=== PATIENT | male | born 1945 | race Caucasian/White ===

== ENCOUNTER 2017-11-15 17:04 | Emergency (ER) | payer MEDICARE ==
--- OUTSIDE RECORDS SUMMARY | 2017-11-15 17:21 | XMS REPORT ---
:1945 External Reference #:[id number] Author Organization [facility] Address [address] [address] Phone [phone] Care Team Providers Name Role Phone Alexandru Donohue III, MD Primary Care Physician Unavailable Payers Type Date Identification Payment Subscriber Numbers Provider Health Maintenance Expires: Policy Number: Medicare Blue Bro Montero [facility] (O) 07/24/2012 [id number] o Group Number: [id number] [address] [address] PayID: [id number] EDWARDO Rainey [id number] Medigap Part B Effective: 07/24/2006 Policy Number: [facility] DEVAN Montero [id number] Expires: 08/24/2009 PayID: [id number] [address] [address] EDWARDO Rainey [address] Commercial Effective: Policy Number: Bandar Nguyen/Kavita Bro Montero 07/24/2012 [id number] Options PayID: [id number] [address] [address] Attn: [place] [address] Problems Date Description Provider Status Onset: 04/17/2013 Pure hypercholesterolemia Alexandru Donohue M.D. Active Onset: 05/05/2016 Sprain of shoulder and upper arm Paul Rivera MD Active Onset: 06/07/2016 Full thickness rotator cuff tear Paul Rivera MD Active Onset: 11/11/2016 Carpal tunnel syndrome of left wrist Paul Rivera MD Active Onset: 05/09/2017 Neck pain Paul Rivera MD Active Onset: 05/09/2017 Brachial neuritis Paul Rivera MD Active Onset: 06/26/2017 Cervical spondylosis without Maxx Richard M.D. Active myelopathy Family History Date Family Member(s) Problem(s) Comments General Heart Disease Father due to Stroke () Mother due to Natural Causes () Siblings 1 sister, 2 half sisters (mom in common), 1 brother, 1 half brother First Sister due to Stroke () First Sister due to age 70 (half sister) () - (+) DM Social History Type Date Description Comments Lives With Occupation Retired Semi-retired [employer] ETOH Use 04/17/2013 consumes 1-2 beers per day Smoking Patient has never smoked Exercise Type/Frequency Exercises regularly [employer] work; active at work Allergies, Adverse Reactions, Alerts Date Description Reaction Status Severity Comments 04/17/2013 NKDA active Medications Medication Date Status Form Strength Qnty SIG Indications Ordering Provider Lactulose 11/01/ Active Solution 10GM/15ML 600ml 30 ml K59.00 Alexandru Chau 2018 daily Tawanna Donohue Flaxseed Oil / Active Capsules 1000mg 1 po qd Unknown 0000 Miralax / Active Powder 1/2 cap Unknown 0000 every other day Docalax / Active Unknown 0000 Meloxicam 06/26/ Hx Tablets 15mg 30tabs 1 by M47.812 Maxx 2017 - mouth Hilary, 10/25/ every day M.D. 2017 Doxycycline 05/16/ Hx Capsules 100mg 2caps 2 tabs by S30.861A Alexandru Smyth 2016 - mouth for Jayde, 10/25/ one dose M.D. 2017 Zetia 05/16/ Hx Tablets 10mg 90tabs 1 by E78.00 Alexandru Chau 2017 - mouth Jayde, 06/26/ every day M.D. 2016 Ibuprofen 07/19/ Hx Tablets 600mg 90tabs take 1 M25.512 Paul 2015 - tab by MD Nicole 07/16/ mouth 2017 with food 3-4 times a day as needed pain Oxycontin 07/07/ Hx Tab ER 12H 10mg 20tabs 1 tab by Paul 2015 - Abuse-Det mouth MD Nicole 07/16/ twice a 2017 day Keflex 07/06/ Hx Capsules 500mg 21caps take 1 Zaneb 2015 - tab by MD Nicole 07/16/ mouth 3 2017 times a day x 7 days until finished. Percocet 06/29/ Hx Tablets 5-325mg 90tabs 1 -2 tabs Yoditneb 2015 - by mouth MD Nicole 07/16/ every 4-6 2017 hours as needed pain Percocet 06/28/ Hx Tablets 5-325mg 90tabs 1-2 tabs M75.121 Zaadeb 2015 - by mouth MD Nicole 07/16/ every 4-6 2017 hours as needed pain Doxycycline 05/31/ Hx Capsules 100mg twice a R21 Alexandru Chau Hyclate 2015 - day by Jayde, 06/22/ mouth M.D. 2015 Doxycycline 05/30/ Hx Tablets DR 100mg 28tabs 1 tab po R21 Alexandru Chau Hyclate 2015 - twice a Jayde, 05/31/ day M.D. 2015 Duloxetine HCL 06/25/ Hx Caps DR 30mg 60caps take 1 R20.9 Alexandru Chau 2014 - Part capsule Jayde, 01/11/ by mouth M.D. 2015 every morning for 1 week, thern 2 tabs daily after that Simvastatin 06/25/ Hx Tablets 5mg 90tabs 1 by E78.0 Alexandru Chau 2014 - mouth Jayde, 01/11/ every day M.D. 2015 Atorvastatin 04/20/ Hx Tablets 10mg 90tabs take 1 E78.0 Alexandru Chau Calcium 2014 - tablet in Jayde, 06/25/ the M.D. 2014 evening Pravastatin 04/18/ Hx Tablets 20mg 90tabs 1 tablet 272.0 Alexandru Chau Sodium 2013 - by mouth Jayde, 04/20/ once M.D. 2014 daily at bedtime - on hold x 2 weeks 06/04/14 No Active Hx Unknown Medications 2013 - 2013 Asa 10/02/ Hx 81mg 1 PO qd Alexandru Chau 2007 - Jayde, 04/17/ M.D. 2012 Multi-Vitamin 10/02/ Hx Tablets 1 PO qd Alexandru Chau 2007 - Jayde, M.D. 2012 Fish Oil / Hx Capsules 300mg 1 po qd Unknown 0000 - 2013 Amoxicillin / Hx Tablets 500mg 30tabs 1 by Unknown 0000 - mouth 04/20/ three 2015 times a day for 10 days Medications Administered in Office Medication Date Status Form Strength Qnty SIG Indications Ordering Provider Triamcinolone 09/30/ Administered Injection Zaneb (Kenalog) 2016 MD Nicole Immunizations CPT Code Status Date Vaccine Reaction Lot # 51457 Given 05/16/2017 Influenza Virus Vaccine, Pt. tolerated well. No [id number] Quadrivalent, Split, reaction noted. Preservative Free 81292 Given 04/21/2016 Tdap - [id number] Tetanus/Diptheria/Acellular Pertussis 41773 Given 04/21/2016 Influenza Virus Vaccine, [id number] Quadrivalent, Split, Preservative Free 37504 Given 04/20/2015 Influenza Virus Vaccine, [id number] Quadrivalent, Split, Preservative Free 17806 Given 04/20/2015 Pneumococcal Conjugate [id number] Vaccine 13 Valent For Intramuscular Use 11496 Given 04/18/2014 Influenza Virus Vaccine, [id number] Quadrivalent, Split, Preservative Free 19031 Given 04/17/2013 Zoster (Zostavax) [id number] 89853 Given 04/17/2013 Flu Vaccine Split Virus [id number] Preservative Free For Indiv 3Yr Older [id number] Given 04/27/2011 Fluzone Vaccine [id number] 33561 Given 04/27/2011 Pneumonia Vaccine [id number] 70463 Given 06/02/2009 Influenza Virus Vaccine, Pandemic Formulation 12633 Given 06/02/2009 Administration Swine Flu Shot 96502 Given 09/14/2005 Tetanus And Diptheria (Td) For Adult Use Preservative Free Vital Signs Date Vital Result Comment 11/01/2017 Weight 172.00 lb Heart Rate 84 /min BP Systolic Sitting 100 mmHg BP Diastolic Sitting 65 mmHg Body Temperature 98.5 F O2 % BldC Oximetry 97 % 10/25/2017 Weight 179.00 lb Heart Rate 66 /min BP Systolic Sitting 98 mmHg BP Diastolic Sitting 56 mmHg O2 % BldC Oximetry 93 % 06/26/2017 Height 69.5 inches 5'9.50" Weight 172.00 lb Heart Rate 76 /min BP Systolic Sitting 136 mmHg BP Diastolic Sitting 80 mmHg Pain Level 0 BMI (Body Mass Index) 25.0 kg/m2 05/22/2017 Height 69.5 inches 5'9.50" Weight 171.00 lb Heart Rate 72 /min BP Systolic Sitting 118 mmHg BP Diastolic Sitting 78 mmHg Pain Level 5 BMI (Body Mass Index) 24.9 kg/m2 05/16/2017 Height 69.5 inches 5'9.50" Weight 171.00 lb Heart Rate 62 /min BP Systolic Sitting 118 mmHg BP Diastolic Sitting 65 mmHg Body Temperature 97.1 F O2 % BldC Oximetry 98 % BMI (Body Mass Index) 24.9 kg/m2 05/09/2017 Height 71 inches 5'11" Weight 165.00 lb Heart Rate 60 /min BP Systolic 130 mmHg BP Diastolic 78 mmHg Respiratory Rate 15 /min Body Temperature 95.9 F Pain Level 0 BMI (Body Mass Index) 23.0 kg/m2 12/30/2016 Height 71 inches 5'11" Weight 169.00 lb Respiratory Rate 14 /min Body Temperature 96.2 F Pain Level 0 BMI (Body Mass Index) 23.6 kg/m2 11/11/2016 Height 71 inches 5'11" Weight 169.00 lb Heart Rate 78 /min BP Systolic 122 mmHg BP Diastolic 82 mmHg Respiratory Rate 14 /min Body Temperature 96.2 F Pain Level 0 BMI (Body Mass Index) 23.6 kg/m2 09/30/2016 Height 71 inches 5'11" Weight 169.00 lb Heart Rate 76 /min Respiratory Rate 16 /min Pain Level 0 BMI (Body Mass Index) 23.6 kg/m2 08/16/2016 Height 71 inches 5'11" Weight 169.00 lb Respiratory Rate 19 /min Pain Level 0 BMI (Body Mass Index) 23.6 kg/m2 07/19/2016 Height 71 inches 5'11" Weight 169.00 lb Body Temperature 97.5 F BMI (Body Mass Index) 23.6 kg/m2 07/12/2016 Height 71 inches 5'11" Weight 169.00 lb Respiratory Rate 16 /min Body Temperature 97.8 F Pain Level 3 BMI (Body Mass Index) 23.6 kg/m2 06/28/2016 Height 71 inches 5'11" Weight 169.00 lb Heart Rate 60 /min BP Systolic Sitting 102 mmHg BP Diastolic Sitting 66 mmHg Respiratory Rate 14 /min Pain Level 1 BMI (Body Mass Index) 23.6 kg/m2 06/22/2016 Height 70 inches 5'10" Weight 169.00 lb Heart Rate 81 /min BP Systolic Sitting 90 mmHg BP Diastolic Sitting 60 mmHg Body Temperature 97.8 F O2 % BldC Oximetry 94 % BMI (Body Mass Index) 24.2 kg/m2 06/07/2016 Height 70 inches 5'10" Weight 170.00 lb Pain Level 3 BMI (Body Mass Index) 24.4 kg/m2 05/30/2016 Height 70 inches 5'10" Weight 170.12 lb Heart Rate 76 /min BP Systolic 112 mmHg BP Diastolic 60 mmHg Body Temperature 97.4 F O2 % BldC Oximetry 98 % BMI (Body Mass Index) 24.4 kg/m2 05/05/2016 Height 70 inches 5'10" Weight 172.00 lb Heart Rate 64 /min BP Systolic Sitting 108 mmHg BP Diastolic Sitting 60 mmHg Respiratory Rate 16 /min Pain Level 5 BMI (Body Mass Index) 24.7 kg/m2 04/21/2016 Height 70 inches 5'10" Weight 172.00 lb Heart Rate 64 /min BP Systolic Sitting 108 mmHg BP Diastolic Sitting 62 mmHg Body Temperature 97.1 F O2 % BldC Oximetry 97 % BMI (Body Mass Index) 24.7 kg/m2 01/12/2016 Weight 167.00 lb Heart Rate 66 /min BP Systolic Sitting 135 mmHg BP Diastolic Sitting 74 mmHg Body Temperature 97.1 F Pain Level 6 06/25/2015 Weight 172.00 lb Heart Rate 55 /min BP Systolic Sitting 116 mmHg BP Diastolic Sitting 67 mmHg Body Temperature 96.6 F 04/20/2015 Height 70.25 inches 5'10.25" Weight 171.00 lb Heart Rate 78 /min BP Systolic Sitting 124 mmHg BP Diastolic Sitting 80 mmHg Body Temperature 98.0 F O2 % BldC Oximetry 98 % BMI (Body Mass Index) 24.4 kg/m2 04/18/2014 Height 70.25 inches 5'10.25" Weight 161.50 lb Heart Rate 56 /min BP Systolic Sitting 108 mmHg BP Diastolic Sitting 74 mmHg Body Temperature 97.1 F BMI (Body Mass Index) 23.0 kg/m2 08/02/2013 Weight 161.00 lb Heart Rate 76 /min BP Systolic Sitting 104 mmHg BP Diastolic Sitting 78 mmHg Body Temperature 97.2 F O2 % BldC Oximetry 96 % 04/17/2013 Height 70 inches 5'10" Weight 158.75 lb Heart Rate 78 /min BP Systolic Sitting 100 mmHg BP Diastolic Sitting 66 mmHg BMI (Body Mass Index) 22.8 kg/m2 04/27/2011 Height 70.25 inches 5'10.25" Weight 166.50 lb Heart Rate 64 /min BP Systolic Sitting 110 mmHg BP Diastolic Sitting 60 mmHg BMI (Body Mass Index) 23.7 kg/m2 09/22/2008 Height 70.5 inches 5'10.50" Weight 177.00 lb Heart Rate 70 /min BP Systolic Sitting 90 mmHg BP Diastolic Sitting 70 mmHg BMI (Body Mass Index) 25.0 kg/m2 10/03/2007 Height 70.5 inches 5'10.50" Weight 177.00 lb Heart Rate 76 /min BP Systolic Sitting 102 mmHg BP Diastolic Sitting 70 mmHg BMI (Body Mass Index) 25.0 kg/m2 Results Test Date Test Result H/L Range Note Lipid Profile (Trig/Chol/HDL) 05/09/2017 Triglycerides 57 mg/dL 1 Cholesterol 211 mg/dL 2 HDL Cholesterol 62.0 mg/dL 3 LDL Cholesterol 138 mg/dL 4 Laboratory test finding 05/09/2017 Alt 21 U/L 7-52 Ast 24 U/L 13-39 Comp Metabolic Panel 05/09/2017 Sodium 139 mmol/L 133-145 Potassium 4.5 mmol/L 3.5-5.0 Chloride 103 mmol/L 101-111 Co2 Carbon Dioxide 31 mmol/L 22-32 Anion Gap 5 mmol/L 2-11 Glucose 103 mg/dL High 70-100 Blood Urea Nitrogen 19 mg/dL 6-24 Creatinine 1.10 mg/dL 0.67-1.17 BUN/Creatinine Ratio 17.3 8-20 Calcium 9.2 mg/dL 8.6-10.3 Total Protein 6.4 g/dL 6.4-8.9 Albumin 4.3 g/dL 3.2-5.2 Globulin 2.1 g/dL 2-4 Albumin/Globulin Ratio 2.0 1-3 Total Bilirubin 0.80 mg/dL 0.2-1.0 Alkaline Phosphatase 50 U/L 34-104 Egfr Non- 66.0 >60 Egfr 84.9 >60 5 Laboratory test finding 08/02/2016 Lyme Disease Serology Positive Negative 6 Lyme Western Blot 08/02/2016 Lyme Disease IgG Ab WB Negative Negative Lyme Disease IgG Bands Present p41, kDa Lyme Disease IgM Ab WB Negative Negative Lyme Disease IgM Bands Present No bands detecte <SEE NOTE> kDa 7 Lyme Disease Interpretation See Comment 8 Laboratory test finding 06/03/2016 Lyme Disease Serology <pending> CBC Auto Diff 05/30/2016 White Blood Count 9.3 10^3/uL 3.5-10.8 Red Blood Count 4.86 10^6/uL 4.0-5.4 Hemoglobin 14.7 g/dL 14.0-18.0 Hematocrit 44 % 42-52 Mean Corpuscular Volume 90 fL 80-94 Mean Corpuscular Hemoglobin 30 pg 27-31 Mean Corpuscular HGB Conc 34 g/dL 31-36 Red Cell Distribution Width 13 % 10.5-15 Platelet Count 233 10^3/uL 150-450 Mean Platelet Volume 8 um3 7.4-10.4 Abs Neutrophils 6.2 10^3/uL 1.5-7.7 Abs Lymphocytes 2.0 10^3/uL 1.0-4.8 Abs Monocytes 0.8 10^3/uL 0-0.8 Abs Eosinophils 0.1 10^3/uL 0-0.6 Abs Basophils 0.1 10^3/uL 0-0.2 Abs Nucleated RBC 0 10^3/uL Granulocyte % 67.0 % 38-83 Lymphocyte % 21.3 % Low 25-47 Monocyte % 9.1 % High 1-9 Eosinophil % 1.5 % 0-6 Basophil % 1.1 % 0-2 Nucleated Red Blood Cells % 0 Laboratory test finding 05/30/2016 Erythrocyte Sed Rate 11 mm/Hr 0-40 C Reactive Protein 2.59 mg/L < 5.00 9 Lyme Disease Serology Negative Negative 10 Laboratory test finding 06/25/2015 Alt (SGPT) 21 U/L 7-52 Ast (Sgot) 18 U/L 13-39 Lipid Profile (Trig/Chol/HDL) 06/25/2015 Triglycerides 113 mg/dL 11 Cholesterol 226 mg/dL 12 HDL Cholesterol 50.2 mg/dL 13 LDL Cholesterol 153 mg/dL 14 Lipid Profile (Trig/Chol/HDL) 07/31/2014 Triglycerides 77 mg/dL 15, 16 Cholesterol 170 mg/dL 15, 17 HDL Cholesterol 52.4 mg/dL 15, 18 LDL Cholesterol 102 mg/dL 15, 19 Laboratory test finding 07/31/2014 Ast 21 U/L 13-39 15, 20 Alt 22 U/L 7-52 15, 21 Hepatitis C Antibody Nonreactive Nonreactive 15 Lipid Profile (Trig/Chol/HDL) 10/01/2012 Triglycerides 114 mg/dL 40-200 Cholesterol 195 mg/dL Less than 200 HDL Cholesterol 52 mg/dL 40-60 22 Cholesterol/HDL Ratio 3.8 Average 1-4.44 LDL Cholesterol 120.2 mg/dL High Less Than 100 23 Laboratory test finding 10/01/2012 Glucose 83 mg/dL 70-100 CBC Auto Diff 04/11/2011 White Blood Count 6.3 CUMM 4.8-10.8 Red Cell Count 4.61 CUMM 4.6-6.2 Hemoglobin 14.4 g/dL 14.0-18.0 Hematocrit 42 % 42-52 Mean Corpuscular Volume 90 um3 80-94 Mean Corpuscular Hemoglob 31 pg 27-31 Mean Corpuscular HGB Cone 35 g/dL 32-36 Redcell Distribution WDTH 13 % 10.5-15 Platelet Count 208 CUMM 150-450 Mean Platelet Volume 8.1 um3 7.4-10.4 Gran % 54.7 % 38-83 Lymph % 30.6 % 25-47 Mononuclear % 10.7 % High 1-9 Eosinophil % 3.0 % 0-6 Basophil % 1.0 % 0-2 Abs Lymphs 1.9 1.0-4.8 Abs Mononuclear 0.7 0-0.8 Absolute Neutrophil Count 3.4 1.5-7.7 Abs Eosinophils 0.2 0-0.6 Abs Basophils 0.1 0-0.2 Lipid Profile (Trig/Chol/HDL) 04/11/2011 Triglyceride 59 mg/dL 40-200 Cholesterol 167 mg/dL Less Than 200 24 High Density Lipoprotein 50 mg/dL 40-60 25 Cholesterol/HDL Ratio 3.34 AVERAGE 1-4.97 Low Density Lipoprotein 105 mg/dL High Less Than 100 26 Comp Metabolic Panel 04/11/2011 Sodium 139 mmol/L 135-145 Potassium 4.5 mmol/L 3.5-5.0 Chloride 104 mmol/L 101-111 Co2 (Carbon Dioxide) 29.0 mmol/L 22-32 Anion Gap 6.0 mmol/L 2-11 27 Glucose 95 mg/dL 70-100 BUN 14 mg/dL 6-24 Creatinine 0.9 mg/dL 0.50-1.40 One Over Creatinine 1.11 BUN/Creatinine Ratio 15.6 8-20 Calcium 9.0 mg/dL 8.1-9.9 Total Protein 5.7 GM/DL Low 6.2-8.1 Albumin 3.9 GM/DL 3.2-5.2 Globulin 1.8 GM/DL Low 2-4 Albumin/Globulin Ratio 2.2 1-3 Bilirubin Total 0.6 mg/dL 0.4-1.5 28 Alkaline Phosphatase 51 U/L 39-117 Alt (SGPT) 24 U/L 17-63 Ast (Sgot) 24 U/L 12-42 eGFR Non- 84.7 > 60 eGFR 108.9 > 60 29 Laboratory test finding 04/11/2011 PSA Screening 2.33 NG/ML 0-[address] Donohue's Lab Panel 04/11/2011 TSH 1.72 MIU/ML 0.34-5.60 CBC With Electronic Diff 08/07/2008 White Blood Count 7.1 CUMM 4.8-10.8 15 Red Cell Count 5.02 CUMM 4.6-6.2 15 Hemoglobin 15.1 g/dL 14.0-18.0 15 Hematocrit 44 % 42-52 15 Mean Corpuscular Volume 88 um3 80-94 15 Mean Corpuscular Hemoglob 30 pg 27-31 15 Mean Corpuscular HGB Cone 34 g/dL 32-36 15 Redcell Distribution WDTH 12 % 10.5-15 15 Platelet Count 236 CUMM 150-450 15 Mean Platelet Volume 7.3 um3 Low 7.4-10.4 15 Gran % 58.6 % 38-83 15 Lymph % 26.7 % 25-47 15 Mononuclear % 9.7 % High 1-9 15 Eosinophil % 3.6 % 0-6 15 Basophil % 1.4 % 0-2 15 Abs Lymphs 1.9 1.0-4.8 15 Abs Mononuclear 0.7 0-0.8 15 Absolute Neutrophil Count 4.1 1.5-7.7 15 Abs Eosinophils 0.3 0-0.6 15 Abs Basophils 0.1 0-0.2 15 Laboratory test finding 08/07/2008 TSH 2.10 MIU/ML 0.34-5.60 15 PSA Screening 1.42 NG/ML 0-4 15, 31 Lipid Profile (Trig/Chol/HDL) 08/07/2008 Triglyceride 86 mg/dL 40-200 15 Cholesterol 222 mg/dL High Less Than 200 15, 32 High Density Lipoprotein 52 mg/dL 40-60 15, 33 Cholesterol/HDL Ratio 4.27 AVERAGE 1-4.97 15 Low Density Lipoprotein 153 mg/dL High Less Than 100 15, 34 Comp Metabolic Panel 08/07/2008 Sodium 135 mmol/L 135-145 15 Potassium 4.6 mmol/L 3.5-5.0 15 Chloride 99 mmol/L Low 101-111 15 Co2 (Carbon Dioxide) 30.0 mmol/L 22-32 15 Anion Gap 6.0 mmol/L 2-11 15, 35 Glucose 92 mg/dL 70-100 15, 36 BUN 15 mg/dL 6-24 15 Creatinine 1.00 mg/dL 0.50-1.40 15 One Over Creatinine 1.00 15 BUN/Creatinine Ratio 15.0 8-20 15 Calcium 9.3 mg/dL 8.1-9.9 15, 37 Total Protein 6.2 GM/DL 6.2-8.1 15 Albumin 3.9 GM/DL 3.2-5.2 15 Globulin 2.3 GM/DL 2-4 15 Albumin/Globulin Ratio 1.7 1-3 15 Bilirubin Total 0.9 mg/dL 0.4-1.5 15 Alkaline Phosphatase 51 U/L 39-117 15 Alt (SGPT) 25 U/L 17-63 15 Ast (Sgot) 21 U/L 12-42 15 1 Desirable: <150 Borderline High: 150-199 High: 200-499 Very High: >500 2 Desirable: <200 Borderline High: 200-239 High: >239 3 Low: <40 Desirable: 40-60 High: >60 4 Desirable: <100 Near Optimal: 100-129 Borderline High: 130-159 High: 160-189 Very High: >189 5 Because ethnic data is not always readily available, this report includes an eGFR for both -Americans and non- Americans. The National Kidney Disease Education Program (NKDEP) does not endorse the use of the MDRD equation for patients that are not between the ages of 18 and 70, are , have extremes of body size, muscle mass, or nutritional status, or are non- or non-. According to the National Kidney Foundation, irrespective of diagnosis, the stage of the disease is based on the level of kidney function: Stage Description GFR(mL/min/1.73 m(2)) 1 Kidney damage with normal or decreased GFR 90 2 Kidney damage with mild decrease in GFR 60-89 3 Moderate decrease in GFR 30-59 4 Severe decrease in GFR 15-29 5 Kidney failure <15 (or dialysis) 6 Not diagnostic. Supplemental testing ordered by reflex. Test Performed by: [place] [address] Maintenance Analyst: Micheal Grider II, M.D., Ph.D. 7 No bands detected 8 Specific serologic response to B. burgdorferi infection is not detected, but cannot rule out early infection during which low or undetectable antibody levels to B. burgdorferi may be present. If clinically indicated, a new serum specimen should be submitted in 7-14 days. ADDITIONAL INFORMATION CDC criteria require >=5 bands for IgG or >=2 bands for IgM for the Immunoblot to be considered positive. Bands (e.g.,p41) may be detected in patients without Lyme disease, and patterns not meeting the CDC criteria should be interpreted with caution. Immunoblot should be ordered only on specimens that are positive or equivocal by a FDA-licensed Lyme disease antibody screening test (e.g., EIA). Test Performed by: [place] [address] Maintenance Analyst: Micheal Grider II, M.D., Ph.D. 9 Acute inflammation: >10.00 10 Serologic response to B. burgdorferi infection is not detected, but cannot rule out early infection during which low or undetectable antibody levels to B. burgdorferi may be present. If clinically indicated, a new serum specimen should be submitted in 7-14 days. Test Performed by: [place] [address] Maintenance Analyst: Micheal Grider II, M.D., Ph.D. 11 Desirable <150 Borderline high 150-199 High 200-499 Very High >500 12 Desirable <200 Borderline high 200-239 High >239 13 Low <40 Desirable: 40-60 High: >60 14 Desirable: <100 mg/dL Near Optimal: 100-129 mg/dL Borderline High: 130-159 mg/dL High: 160-189 mg/dL Very High: >189 mg/dL 15 FASTING 16 Desirable <150 Borderline high 150-199 High 200-499 Very High >500 17 Desirable <200 Borderline high 200-239 High >239 18 Low <40 Desirable: 40-60 High: >60 19 Desirable <100 Near Optimal 100-129 Borderline high 130-159 High 160-189 Very High >189 20 FASTING 21 FASTING 22 HDL Interpretation: Undesirable: High Risk: Less than 40 MG/DL Desirable: Low Risk: Greater than 60 MG/DL 23 LDL Interpretation: Low Risk Optimal Level: LDL Less than 100 MG/DL Near or Above Optimal: LDL 100-129 MG/DL Borderline High Risk: LDL 130-159 MG/DL High Risk: LDL 160-189 MG/DL Very High Risk: LDL Greater than 189 MG/DL 24 CHOLESTEROL INTERPRETATION: Desirable: Less than 200 MG/DL Borderline-High Risk: 200-239 MG/DL High-Risk: 240 MG/DL and over 25 HDL INTERPRETATION: Undesirable: High Risk: Less than 40 MG/DL Desirable: Low Risk: Greater than 60 MG/DL 26 LDL INTERPRETATION: Low Risk Optimal Level: LDL Less than 100 MG/DL Near or Above Optimal: LDL 100-129 MG/DL Borderline High Risk: LDL 130-159 MG/DL High Risk: LDL 160-189 MG/DL Very High Risk: LDL Greater than 189 MG/DL 27 Anion gap measurement may be of limited value in the presence of any alkalosis, especially in a combined acid base disorder. . 28 A metabolite of Naproxen, O-desmethylnaproxen, has been shown to interfere with the Jendrassik-Kyle method for measuring total bilirubin. Samples from patients who have taken Naproxen have shown spurious elevation in total bilirubin levels. 29 Because ethnic data is not always readily available, this report includes an eGFR for both -Americans and non- Americans. The National Kidney Disease Education Program (NKDEP) does not endorse the use of the MDRD equation for patients that are not between the ages of 18 and 70, are , have extremes of body size, muscle mass, or nutritional status, or are non- or non-. According to the National Kidney Foundation, irrespective of diagnosis, the stage of the disease is based on the level of kidney function: Stage Description GFR(mL/min/1.73 m(2)) 1 Kidney damage with normal or decreased GFR 90 2 Kidney damage with mild decrease in GFR 60-89 3 Moderate decrease in GFR 30-59 4 Severe decrease in GFR 15-29 5 Kidney failure <15 (or dialysis) 30 * SERUM LEVELS OF PSA MEASURED USING THE [employer] ACCESS HYBRITECH IMMUNOASSAY SHOULD NOT BE INTERPRETED ABSOLUTE EVIDENCE OF THE PRESENCE OR ABSENCE OF DISEASE. THE PSA VALUE SHOULD BE USED IN CONJUNCTION WITH OTHER PERTINENT CLINICAL DIAGNOSTIC PROCEDURES. 31 * SERUM LEVELS OF PSA MEASURED USING THE [employer] ACCESS HYBRITECH IMMUNOASSAY SHOULD NOT BE INTERPRETED ABSOLUTE EVIDENCE OF THE PRESENCE OR ABSENCE OF DISEASE. THE PSA VALUE SHOULD BE USED IN CONJUNCTION WITH OTHER PERTINENT CLINICAL DIAGNOSTIC PROCEDURES. 32 CHOLESTEROL INTERPRETATION: Desirable: Less than 200 MG/DL Borderline-High Risk: 200-239 MG/DL High-Risk: 240 MG/DL and over 33 HDL INTERPRETATION: Undesirable: High Risk: Less than 40 MG/DL Desirable: Low Risk: Greater than 60 MG/DL 34 LDL INTERPRETATION: Low Risk Optimal Level: LDL Less than 100 MG/DL Near or Above Optimal: LDL 100-129 MG/DL Borderline High Risk: LDL 130-159 MG/DL High Risk: LDL 160-189 MG/DL Very High Risk: LDL Greater than 189 MG/DL 35 Anion gap measurement may be of limited value in the presence of any alkalosis, especially in a combined acid base disorder. . 36 Note change in reference range as of 03/13/08. The change was based on recommendations from the [place] [employer]. 37 Please note change in reference range effective 07 . Procedures Date CPT Code Description Status 09/30/2016 06651 Inject/Drain Joint/Bursa Major Completed 07/06/2016 95903 Tenodesis Biceps Long Tendon Completed 07/06/2016 51510 Tenodesis Biceps Long Tendon Completed 07/06/2016 29453 Repair Ruptured Musculotendinous Cuff Open, Chronic Completed 07/06/2016 79507 Repair Ruptured Musculotendinous Cuff Open, Chronic Completed 06/22/2016 36207 EKG Tracing & Interpretation Completed 04/02/2014 74059 EKG, Interpretation Only Completed 11/12/2013 53562 Polysomnography Sleep Staging 4+ Parameters Completed 08/21/2012 Colonoscopy Completed Encounters Type Date Location Provider CPT E/M Dx Office Visit 06/26/2017 [facility]x Richard, [address]442 M47.812 10:10a Of [facility] Office Visit 05/22/2017 [facility] Joi Watt PA-C 17332 M54.2 10:15a Of [facility] M54.2 Office Visit 05/16/2017 9:20a [facility] Alexandru Donohue, 88952 Z00.00 - Lawson Stacy E78.00 R73.01 Z85.828 S30.861A Z23 Office Visit 05/09/2017 8:00a [facility] [place] [address] M75.122 C.M.A. G56.02 M54.2 M47.892 Office Visit 12/30/2016 8:30a [facility] [place] [address] M75.122 C.M.A. G56.02 Z47.89 Office Visit 11/11/2016 9:15a [facility] [place] [address] M75.122 C.M.A. G56.02 Z47.89 Office Visit 06/22/2016 2:20p [facility] Alexandru Donohue, 67303 Z01.810 - Lawson Stacy M75.121 E78.00 Z85.828 Office Visit 06/07/2016 8:00a [place] [address] M75.121 Of C.M.A. Office Visit 05/30/2016 2:00p [facility] Alexandru Donohue, 35418 R21 - Lawson Stacy Office Visit 05/05/2016 8:30[place] [address] S46.011A Of C.M.A. Office Visit 01/12/2016 10:40a [facility] Alexandru Donohue, 98609 M25.512 - Armida Stacy M19.012 Office Visit 06/25/2015 1:00p [facility] Alexandru Donohue, 93839 R20.9 - Armida Stacy E78.0 Office Visit 04/18/2014 10:00a [facility] Alexandru Donohue, 89550 V70.0 - Armida Stacy 272.0 V10.83 782.0 V73.89 V04.81 Office Visit 08/02/2013 11:40a [facility] Alexandru Donohue, 50348 787.20 - Armida Stacy Office Visit 04/17/2013 3:00p [facility] Alexandru Donohue, 75870 V70.0 - Armida Stacy 272.0 V10.83 750.26 V04.81 v04.89 Office Visit 10/03/2011 2:00p [facility] Roly Chen, 77115 915.7 C.M.ACristina Stacy Office Visit 04/27/2011 10:00a DO Not Use [facility] Alexandru Donohue, 78504 V70.0 [facility] Tawanna v04.81 V03.82 V06.6 Office Visit 09/22/2008 3:15p [facility] Alexandru Donoheu, 75946 692.9 [facility] Tawanna 272.0 Office Visit 10/03/2007 1:30p [facility] AlexandruBaugh, 77170 789.00 [facility] Tawanna Plan of Care Future Appointment(s):05/16/2018 9:20 am - Alexandru Donohue M.D. at [facility] - Sksobnbux25/11/2018 - Alexandru Donohue M.D.K59.00 Constipation, unspecifiedNew Medication:Lactulose 10 GM/15ML
--- OUTSIDE RECORDS SUMMARY | 2017-11-15 17:21 | XMS REPORT ---
:1945 External Reference #:[id number] Author [facility] Address [address] [address] Phone [phone] Care Team Providers Name Role Phone Alexandru Donohue III, MD Primary Care Physician Unavailable Payers Type Date Identification Payment Subscriber Numbers Provider Health Maintenance Expires: Policy Number: Medicare Blue Bro Montero [facility] (O) 07/24/2012 [id number] o Group Number: [id number] [address] [address] PayID: [id number] EDWARDO Rainey [address] Medigap Part B Effective: 07/24/2006 Policy Number: [facility] DEVAN Montero [id number] Expires: 08/24/2009 PayID: [id number] [address] [address] EDWARDO Rainey [address]856 Commercial Effective: Policy Number: Bandar Nguyen/Kavita Bro Montero 07/24/2012 [id number] Options PayID: [id number] [address] [address] Attn: [place] [address] Problems Date Description Provider Status Onset: 04/17/2013 [...] Description Comments Lives With Occupation Retired Semi-retired [employer] ETOH Use 04/17/2013 consumes 1-2 beers per day Smoking Patient has never smoked Exercise Type/Frequency Exercises regularly Boat repair work; active at work Allergies, Adverse Reactions, Alerts Date Description Reaction Status Severity Comments 04/17/2013 NKDA active Medications Medication Date Status Form Strength Qnty SIG Indications Ordering Provider Flaxseed Oil Active Capsules 1000mg 1 po qd Unknown 000 Miralax Active Powder /2 cap Unknown 000 every other day Docalax Active Unknown 000 Meloxicam Hx Tablets 15mg 30tabs 1 by M47.812 Maxx 017 - mouth Hilary, every day M.D. 018 Doxycycline Hx Capsules 100mg 2caps 2 tabs by S30.861A Alexandru Rodneyclate 017 - mouth for Jayde, one dose M.D. 018 Zetia Hx Tablets 10mg 90tabs 1 by E78.00 Alexandru Chau 017 - mouth Jayde, every day M.D. 017 Ibuprofen Hx Tablets 600mg 90tabs take 1 M25.512 Paul 016 - tab by MD Nicole mouth 017 with food 3-4 times a day as needed pain Oxycontin Hx Tab ER 12H 10mg 20tabs 1 tab by Paul Cyr - Abuse-Det mouth MD Nicole twice a 017 day Keflex Hx Capsules 500mg 21caps take 1 Paul 016 - tab by MD Nicole mouth 3 017 times a day x 7 days until finished. Percocet Hx Tablets 5-325mg 90tabs 1 -2 tabs Ambrociob 016 - by mouth MD Nicole every 4-6 017 hours as needed pain Percocet Hx Tablets 5-325mg 90tabs 1-2 tabs M75.121 Yoditneb 016 - by mouth MD Nicole every 4-6 017 hours as needed pain Doxycycline Hx Capsules 100mg twice a R21 Alexandru E. Hyclate 016 - day by Jayde, mouth M.D. [address] 100mg 28tabs 1 tab po R21 Alexandru E. Hyclate 016 - twice a Jayde, day M.D. 0[address]ox[address] Hx Caps [address] 30mg 60caps take 1 R20.9 Alexandru E. 015 - Part capsule Jayde, by mouth M.D. 016 every morning for 1 week, thern 2 tabs daily after that Simvastatin Hx Tablets 5mg 90tabs 1 by E78.0 Alexandru E. 015 - mouth Jayde, every day M.D. 016 Atorvastatin Hx Tablets 10mg 90tabs take 1 E78.0 Alexandru E. Calcium 015 - tablet in Jayde, the M.D. 015 evening Pravastatin Hx Tablets 20mg 90tabs 1 tablet 272.0 Alexandru E. Sodium 014 - by mouth Jayde, once M.D. 015 daily at bedtime - on hold x 2 weeks 06/04/14 No Active Hx Unknown Medications 014 - 014 Asa Hx 81mg 1 PO qd Alexandru ECristina 008 - Jayde, M.D. 013 Multi-Vitamin Hx Tablets 1 PO qd Alexandru ECristina 008 - Jayde, M.D. 013 Fish Oil Hx Capsules 300mg 1 po qd Unknown 000 - 014 Amoxicillin 0 Hx Tablets 500mg 30tabs 1 by Unknown 000 - mouth three 015 times a day for 10 days Medications Administered in Office Medication Date Status Form Strength Qnty SIG Indications Ordering Provider Triamcinolone 09/30/ Administered Injection Zaneb (Kenalog) 2016 MD Nicole Immunizations CPT Code Status Date Vaccine Reaction Lot # [id number] Given 05/16/2017 Influenza Virus Vaccine, Pt. tolerated well. No [id number] Quadrivalent, Split, reaction noted. Preservative Free 68524 Given 04/21/2016 Tdap - [id number] Tetanus/Diptheria/Acellular Pertussis 70596 Given 04/21/2016 Influenza Virus Vaccine, [id number] Quadrivalent, Split, Preservative Free 06724 Given 04/20/2015 Influenza Virus Vaccine, [id number] Quadrivalent, Split, Preservative Free 42118 Given 04/20/2015 Pneumococcal Conjugate [id number] Vaccine 13 Valent For Intramuscular Use 07626 Given 04/18/2014 Influenza Virus Vaccine, [id number] Quadrivalent, Split, Preservative Free 96261 Given 04/17/2013 Zoster (Zostavax) [id number] 48740 Given 04/17/2013 Flu Vaccine Split Virus [id number] Preservative Free For Indiv 3Yr Older Q2038 Given 04/27/2011 Fluzone Vaccine [id number] 10535 Given 04/27/2011 Pneumonia Vaccine [id number] 88904 Given 06/02/2009 Influenza Virus Vaccine, Pandemic Formulation 55638 Given 06/02/2009 Administration Swine Flu Shot 94647 Given 09/14/2005 Tetanus And Diptheria (Td) For Adult Use Preservative Free Vital Signs Date Vital Result Comment 10/25/2017 Weight 179.00 lb Heart Rate 66 [...] testing ordered by reflex. Test Performed by: [place] [address] Leverman: Micheal Grider II, M.D., Ph.D. 7 No [...] screening test (e.g., EIA). Test Performed by: [place] [address] Leverman: Micheal Grider II, M.D., Ph.D. 9 Acute inflammation: >10.00 10 Serologic response to B. burgdorferi infection is not detected, but cannot rule out early infection during which low or undetectable antibody levels to B. burgdorferi may be present. If clinically indicated, a new serum specimen should be submitted in 7-14 days. Test Performed by: [address] [address] Leverman: Micheal Grider II, M.D., Ph.D. 11 Desirable [...] SERUM LEVELS OF PSA MEASURED USING THE LAURYN [employer] ACCESS HYBRITECH IMMUNOASSAY SHOULD NOT BE INTERPRETED ABSOLUTE EVIDENCE OF THE PRESENCE OR ABSENCE OF DISEASE. THE PSA VALUE SHOULD BE USED IN CONJUNCTION WITH OTHER PERTINENT CLINICAL DIAGNOSTIC PROCEDURES. 31 * SERUM LEVELS OF PSA MEASURED USING THE LAURYN [employer] ACCESS HYBRITECH IMMUNOASSAY SHOULD NOT BE INTERPRETED [...] change was based on recommendations from the [place] [employer]. 37 Please note change in reference range effective 07 . Procedures Date CPT Code Description Status 09/30/2016 59586 Inject/Drain Joint/Bursa Major Completed 07/06/2016 10717 Tenodesis Biceps Long Tendon Completed 07/06/2016 Tenodesis Biceps Long Tendon Completed 07/06/2016 89990 Repair Ruptured Musculotendinous Cuff Open, Chronic Completed 07/06/2016 83558 Repair Ruptured Musculotendinous Cuff Open, Chronic Completed 06/22/2016 63097 EKG Tracing & Interpretation Completed 04/02/2014 53654 EKG, Interpretation Only Completed 11/12/2013 44376 Polysomnography Sleep Staging 4+ Parameters Completed 08/21/2012 Colonoscopy Completed Encounters Type Date Location Provider [facility] E/M Dx Office Visit 06/26/2017 [facility] Maxx Carloscalf, 45340 M47.812 10:10a Of Anali Solomon.Lc Office Visit 05/22/2017 [facility] Joi Watt PA-C 80688 M54.2 10:15a Of [facility] M54.2 Office Visit 05/16/2017 9:20a [facility] Alexandru Donohue, 22439 Z00.00 - Lawson Stacy E78.00 R73.01 Z85.828 S30.861A Z23 Office Visit 05/09/2017 8:00a [facility] [place] [address] M75.122 C.M.A. G56.02 M54.2 M47.892 Office Visit 12/30/2016 8:30a [facility] [place] [address] M75.122 C.M.A. G56.02 Z47.89 Office Visit 11/11/2016 9:15a [facility] [place] [address] M75.122 C.M.A. G56.02 Z47.89 Office Visit 06/22/2016 2:20p [facility] Alexandru Donohue 41110 Z01.810 - Lawson Stacy M75.121 E78.00 Z85.828 Office Visit 06/07/2016 8:00[place] [facility] [address] M75.121 Of C.M.A. Office Visit 05/30/2016 2:00p [facility] Alexandru Donohue 22823 R21 - Lawson Stacy Office Visit 05/05/2016 8:30[place] [address] S46.011A Of C.M.A. Office Visit 01/12/2016 10:40a [facility] Alexandru Donohue 06388 M25.512 - Armida Stacy M19.012 Office Visit 06/25/2015 1:00p [facility] Alexandru Donohue 90646 R20.9 - Armida Stacy E78.0 Office Visit 04/18/2014 10:00a [facility] Alexandru Donohue, 73214 V70.0 - Armida Stacy 272.0 V10.83 782.0 V73.89 V04.81 Office Visit 08/02/2013 11:40a [facility] Alexandru Donohue, 37428 787.20 - Armida Stacy Office Visit 04/17/2013 3:00p [facility] Alexandru Donohue, 85295 V70.0 - Armida Stacy 272.0 V10.83 750.26 V04.81 v04.89 Office Visit 10/03/2011 2:00p [facility] Roly Chen, 40634 915.7 Anita Stacy Office Visit 04/27/2011 10:00a DO Not Use [facility] Alexandru Donohue, 35926 V70.0 Fabiola Stacy v04.81 V03.82 V06.6 Office Visit 09/22/2008 3:15p [facility] Alexandru Donohue, 98779 692.9 [facility] Tawanna 272.0 Office Visit 10/03/2007 1:30p [facility] Alexandru Donohue, 81071 789.00 [facility] Tawanna Plan of Care Future Appointment(s):05/16/2018 9:20 am - Alexandru Donohue M.D. at [facility] - Qpzndinnw64/04/2018 - Alexandru Donohue M.D.K59.00 Constipation, unspecified
[2017-11-15] MEDS ORDERED: Magnesium CITRATE* 300 ML BTL PO ONE (18:58)
[2017-11-15] MEDS ORDERED: Polyethylene Glycol 3350* 17 GM PACKET PO SCH (20:00)
--- NOTE | 2017-11-15 20:02 | RAD ---
Indication: Possibly of stool. Flat and upright views of the abdomen demonstrates stool in the right colon. The rectal vault is empty. Psoas margins are unremarkable. No dilated loops of bowel are noted. Degenerative changes of the right hip are noted. Degenerative changes of the lumbar spine noted. IMPRESSION: Stool in the right colon. No evidence of obstruction is noted.
[2017-11-15 21:55] VITALS: BP 131/75
--- NOTE | 2017-11-16 13:35 | ED ---
Regan Velazquez Nilda, scribed for Nicolas Bowie MD on 11/15/17 at 1905 . Abdominal Pain/Male - HPI Summary HPI Summary: This patient is a 72 year old M presenting to [facility] accompanied by with a chief complaint of constant constipation for the past 6-7 weeks. Pt states he only has very small watery bowel moments with assistance of Dulcolax. He notes he could only have GI appointment scheduled for the end of the month. Pt reprots abd discomfort (3/10 in severity) that has been causing pt insomnia, loss of appetite, and weight loss secondary to loss of appetite. Pt also reports increased flatulence but denies nausea, fever, diaphoresis, and chills. Pt states constipation is untouched by enema and Lactulax (prescribed by PCP). He states he drinks about 100 oz water per day and 1 beer per day. Medications include flax seed for the past 7-8 years. He is on no other medications. - History of Current Complaint Chief Complaint: EDAbdPain Stated Complaint: ABD PAIN Time Seen by Provider: 11/15/17 18:51 Hx Obtained From: Patient Onset/Duration: Sudden Onset, Lasting Weeks, Still Present Timing: Constant Severity Currently: Mild Pain Intensity: 3 Pain Scale Used: 0-10 Numeric Location: Diffuse Aggravating Factor(s): Food Alleviating Factor(s): Other: - Dulcolax Associated Signs And Symptoms: Positive: Other - constipation, insomnia, loss of appetite, and weight loss secondary to loss of appetite. Pt also reports increased flatulence but denies nausea, fever, diaphoresis, and chills. - Allergies/Home Medications Allergies/Adverse Reactions: Allergies Allergy/AdvReac Type Severity Reaction Status Date / Time No Known Allergies Allergy Verified 11/15/17 17:11 PMH/Surg Hx/FS Hx/Imm Hx Endocrine/Hematology History: Denies: Hx Diabetes Cardiovascular History: Reports: Hx Hypercholesterolemia Denies: Hx Hypertension, Hx Pacemaker/ICD Respiratory History: Reports: Hx Sleep Apnea - evaluation for 10/2013 History: Denies: Hx Renal Disease Musculoskeletal History: Reports: Hx Arthritis - HANDS Sensory History: Reports: Hx Contacts or Glasses - reading glasses, Hx Hearing Aid - right ear, Hx Hearing Problem - tinnitus Opthamlomology History: Reports: Hx Contacts or Glasses - reading glasses Neurological History: Reports: Other Neuro Impairments/Disorders Denies: Hx Headaches Psychiatric History: Denies: Hx Panic Disorder - Surgical History Surgery Procedure, Year, and Place: 04/09/14 RIGHT EAR TYMPANOPLASTY WITH OSSICULOPLASTY WITH TEMPORALIS FASCIA GRAFT([employer] XOMED SAFE UPTO 3T). RIGHT EAR TYMPANOPLASTY [place] [facility] TONSILLECTOMY A CHILD. 06/2016 - Lt SHOULDER Hx Anesthesia Reactions: No Infectious Disease History: No Infectious Disease History: Denies: Traveled Outside the [place] in Last 30 Days - Family History Known Family History: Negative: Cardiac Disease, Hypertension, Diabetes - Social History Lives: With Family Alcohol Use: Weekly Alcohol Amount: 6 bottles weekly Substance Use Type: Reports: None Smoking Status (MU): Never Smoked Tobacco Have You Smoked in the Last Year: No Review of Systems Negative: Fever, Chills, Skin Diaphoresis Negative: Erythema Negative: Sore Throat Negative: Chest Pain Negative: Shortness Of Breath, Cough Positive: Abdominal Pain, Diarrhea - mild with dulcolax, Other - constipation, loss of appetite, weight loss secondary to loss of appetite, increased flatulence. Negative: Vomiting, Nausea Negative: dysuria, hematuria Negative: Myalgia, Edema Negative: Rash Neurological: Other - insomnia secondary to abd pain; negative dizziness All Other Systems Reviewed And Are Negative: Yes Physical Exam - Summary Physical Exam Summary: Constitutional: Well-developed, Well-nourished, Alert. (-) Distressed Skin: Warm, Dry HENT: Normocephalic; Atraumatic Eyes: Conjunctiva normal Neck: Musculoskeletal ROM normal neck. (-) JVD, (-) Stridor, (-) Tracheal deviation Cardio: Rhythm regular, rate normal, Heart sounds normal; Intact distal pulses; The pedal pulses are 2+ and symmetric. Radial pulses are 2+ and symmetric. (-) Murmur Pulmonary/Chest wall: Effort normal. (-) Respiratory distress, (-) Wheezes, (-) Rales Abd: Soft, (-) Tenderness, (-) Distension, (-) Guarding, (-) Rebound. Active bowel sounds. Musculoskeletal: (-) Edema Lymph: (-) Cervical adenopathy Neuro: Alert, Oriented x3 Psych: Mood and affect Normal Triage Information Reviewed: Yes Vital Signs On Initial Exam: Initial Vitals Temp Pulse Resp BP Pulse Ox 97.7 F 71 16 133/74 96 11/15/17 17:06 11/15/17 17:06 11/15/17 17:06 11/15/17 17:06 11/15/17 17:06 Vital Signs Reviewed: Yes Diagnostics - Vital Signs Vital Signs Temp Pulse Resp BP Pulse Ox 11/15/17 18:53 66 143/80 97 11/15/17 18:52 71 97 11/15/17 17:06 97.7 F 71 16 133/74 96 - Laboratory Lab Statement: Any lab studies that have been ordered have been reviewed, and results considered in the medical decision making process. - Radiology Abd XR Radiology Interpretation Completed By: Radiologist - Stool in the right colon. No evidence of obstruction is noted. Dr. Bowie has reviewed this radiology report. Abdominal Pain Fem Course/Dx - Course Assessment/Plan: constipation no obstruction. - Diagnoses Provider Diagnoses: Constipation Discharge - Sign-Out/Discharge Documenting (check all that apply): Discharge/Admit/Transfer - Discharge Plan Condition: Stable Disposition: HOME Prescriptions: Polyethylene Glycol 3350* [Miralax*] 17 gm PO DAILY #10 packet Patient Education Materials: Constipation (ED) Referrals: Alexandru Donohue MD [Primary Care Provider] - 3 Days Additional Instructions: Increase water intake and drink prune juice. RETURN TO THE EMERGENCY DEPARTMENT FOR CHANGING OR WORSENING SYMPTOMS. The documentation as recorded by the Regan balderas Nilda accurately reflects the service I personally performed and the decisions made by Jamir peterson Jerry, MD.
== END 2017-11-15 21:58 | disposition home or self-care (01) ==
LOC: ED 17:04
DX: K59.00 Constipation, unspecified (principal)
CPT/HCPCS: 74018; 99283; A9270-GY

== ENCOUNTER 2018-06-13 09:51 | Day surgery (SDC) | payer MEDICARE ==
--- NOTE | 2018-05-28 09:59 | HP ---
AMENDED REPORT NOW INCLUDES COSIGNER DESIGNATION PREOPERATIVE HISTORY AND PHYSICAL: DATE OF ADMISSION/SURGERY: 06/13/18 DATE OF OFFICE VISIT: 05/25/18 ATTENDING SURGEON: Dr. aPul Rivera.* (DICTATED BY JULISSA BULLARD) PROCEDURE: Right shoulder arthroscopic rotator cuff repair, decompression, debridement, and subpectoral biceps tenodesis. CHIEF COMPLAINT: Right shoulder. HISTORY OF PRESENT ILLNESS: Bro is a 72-year-old male who presents to the clinic for right shoulder pain due to rotator cuff tear and biceps tendinitis. He has failed conservative measures and therefore agreed to undergo a right shoulder arthroscopic rotator cuff repair, decompression, debridement, and subpectoral biceps tenodesis with Dr. Rivera on 06/13/18. PAST MEDICAL HISTORY: Osteoarthritis. PAST SURGICAL HISTORY: Right ear surgery and left shoulder rotator cuff repair. The patient denies prior complications with anesthesia. MEDICATIONS: Flaxseed oil 1000 mg 1 by mouth daily. ALLERGIES: No known drug allergies. FAMILY HISTORY: Denies pertinent family history. SOCIAL HISTORY: He lives with his spouse. He works as a tech. He denies tobacco use. He reports occasional alcohol consumption. He is right-hand dominant. REVIEW OF SYSTEMS: A 14-point review of systems was reviewed with the patient. Positive for current complaint, otherwise negative. Denies fever, chills, chest pain, shortness of breath, history of bleeding disorder, history of DVT or PE. PHYSICAL EXAMINATION GENERAL: A 72-year-old well-developed, well-nourished male, in no acute distress. Alert and oriented x3. VITAL SIGNS: Height 69.5, weight 166, pulse 60, blood pressure 116/58, BMI 24.2. HEENT: Normocephalic, atraumatic. PERRLA. Throat clear. NECK: Supple. PULMONARY: Lungs are clear to auscultation bilaterally. No wheezing, rhonchi, or rales. CARDIO: Regular rate and rhythm. S1, S2. No murmurs, gallops, or rubs. No edema. ABDOMEN: Positive bowel sounds. Soft, nontender. NEURO: Alert and oriented x3. Cranial nerves grossly intact. MUSCULOSKELETAL: Right upper extremity: Skin is intact. No warmth or erythema. Nontender to palpation. Forward flexion and abduction to 160, external rotation to 65, internal rotation to lumbar spine. +4/5 strength to rotator cuff testing with pain. Positive impingement, Speeds, Gonzalez-Kang, [place]. +2 radial pulse. Sensation intact to light touch distally. DIAGNOSTIC STUDIES: MRI revealed full-thickness rotator cuff tear with no significant amount of retraction. IMPRESSION: Right shoulder rotator cuff tear and biceps tendinitis. PLAN: The patient is scheduled to undergo a right shoulder arthroscopic rotator cuff repair, decompression, debridement, and subpectoral biceps tenodesis with Dr. Rivera on 06/13/18. He will follow up 10 to 14 days postop for followup and suture removal. Percocet will be used for postop pain management and Keflex for antibiotic prophylaxis. JULISSA BULLARD [id number]/[facility] #: [id number] RADHA
[~2018-06-13 09:51] MED LIST: Buffered Lidocaine 0.9% SYRIN* 5 ML/SYR SYRINGE INTRADERM ONE
[2018-06-13] MEDS ORDERED: HYDROmorphone INJ* 0.5 MG/0.5 ML SYRINGE ONE (10:53)
[2018-06-13] MEDS ORDERED: ceFAZolin 2 GM PREMIX in ORs 2 GM/50 ML BAG IVPB ONE (10:53)
[2018-06-13] MEDS ORDERED: HYDROmorphone PCA* 20 MG/20 ML PCA.SYRING ONE (10:58)
[2018-06-13] MEDS ORDERED: Propofol* 10 MG/ML 20 ML BTL IV PUSH ONE (11:51)
[2018-06-13] MEDS ORDERED: Bupivacaine 0.25% SDV* 30 ML ONE (11:51)
[2018-06-13] MEDS ORDERED: Midazolam* 1 MG/ML 5 ML VIAL (5 MG) ONE (11:51)
[2018-06-13] MEDS ORDERED: fentaNYL* 50 MCG/ML 2 ML VIAL (100 MCG VIAL) ONE (11:51)
[2018-06-13] MEDS ORDERED: Bupivacaine 0.25% SDV PF* 10 ML VIAL INJ ONE ×3 (12:50→12:58)
[2018-06-13] MEDS ORDERED: Atracurium* 10 MG/ML 10 ML VIAL ONE (13:04)
[2018-06-13] MEDS ORDERED: Dexamethasone IV* 4 MG/ML 1 ML (4 MG) ONE (13:27)
[2018-06-13] MEDS ORDERED: Ondansetron INJ* 2 MG/ML VIAL ONE (14:19)
[2018-06-13] MEDS ORDERED: Ketorolac INJ* 30 MG/ML 1 ML VIAL ONE (14:19)
[2018-06-13] MEDS ORDERED: DiMENhydriNATE IV* 50 MG/ML VIAL IV PUSH PRN (14:28)
[2018-06-13] MEDS ORDERED: Ondansetron INJ* 2 MG/ML VIAL IV PRN (14:28)
[2018-06-13] MEDS ORDERED: oxyCODONE/Acetamin 5/325 MG* TAB PO PRN (14:28)
[2018-06-13] MEDS ORDERED: fentaNYL* 50 MCG/ML 2 ML VIAL (100 MCG VIAL) IV PRN (14:28)
[2018-06-13] MEDS ORDERED: Naloxone* 0.4 MG/ML 1 ML VIAL IV PRN (14:28)
[2018-06-13 15:43] VITALS: BP 127/83
--- NOTE | 2018-06-14 07:18 | OP ---
CC: PCP OPERATIVE REPORT: DATE OF OPERATION: 06/13/18 DATE OF : 45 SURGEON: Paul Rivera MD LINE CLEARANCE FOREMAN: JULISSA Mason An community program assistant was needed for the entirety of the case to help with positioning, retraction and was uti lized throughout all portions of the case. ANESTHESIOLOGIST: Dr. Ross. ANESTHESIA: General with interscalene block. PRE-OP DIAGNOSES: Right shoulder complete tear of the supraspinatus and part of the infraspinatus te ndon with bicipital tendonitis with a superior labral tear. POST-OP DIAGNOSES: Right shoulder complete tear of the supraspinatus and part of the infraspinatus t endon with bicipital tendonitis with a superior labral tear. OPERATIVE PROCEDURE: Right shoulder arthroscopy with: 1. Extensive glenohumeral debridement including debridement of the anteroposterior, superior labrum and a small chondroplasty. 2. Subacromial decompression with acromioplasty. 3. Rotator cuff repair of the supraspinatus and infraspinatus tendon for an abnormal tear. 4. Open subpectoral biceps tenodesis. COMPLICATIONS: None. ESTIMATED BLOOD LOSS: Minimal. IMPLANTS USED: One Healicoil and one MultiFix and one 2.8 Q-FIX. INDICATIONS: Bro Montero is a 72-year-old male who has had right shoulder pain for some time. He has failed conservative management. He has a full thickness tear of the rotator cuff, but it was no t at the insertion. It was more medial to the insertion. Risks and benefits were discussed at [facility] and included, but not limited to bleeding, infection, damage to nerves, vessels, surrounding struct ures, wound nonhealing, persistent pain, need for further surgery, scarring, stiffness, incomplete re lief of symptoms, risks of anesthesia. DESCRIPTION OF PROCEDURE: The patient was greeted in the preoperative area by the attending surgeon. Correct extremity was marked and consent was confirmed. The patient underwent interscalene nerve b lock by the Anesthesiology after which he was brought back to the operating suite. He was placed in a supine position on the operating table. He then underwent general anesthesia and endotracheal intu bation after which he was positioned in the left lateral decubitus position. All bony prominences we re padded. He was secured with a peg board. The right shoulder was then draped unsterile with 10-po unds of traction. The right shoulder was then prepped and draped in the usual sterile fashion beginn ing with chlorhexidine soap, scrub, and alcohol wipe and a final prep with ChloraPrep. After appropriate surgical pause indicating site, side, procedure and administration of antibiotics, the standard posterolateral portal was made sharply with 11-blade. The scope was introduced into the joint. The joint was examined. There were some grade 0 to 1 changes of glenohumeral joint. The ant eroposterior superior labrum had some mild fraying. The biceps was somewhat subluxed and there was a bundant synovitis anteriorly. The anterior portal was made in an outside-in fashion. Shaver was use d to debride back abundant synovitis within the anteroposterior superior labrum through a small chond roplasty. Inferior recess was intact. The biceps was then tenotomized for later tenodesis. There w as evidence of full-thickness tear. The subscap was identified and found to have minor tearing that was present. After the debridement was completed, attention was directed to the subacromial space. With the scope positioned in subacromial space, the lateral portal was made in outside-in fashion. S haver was used to debride the sac and the undersurface of the acromion was skeletonized using electro cautery device, then a 4-0 oval evette was used to do a small acromioplasty. Attention was then directed to the rotatory cuff. The insertion of the rotator cuff was still intact , but we have torn approximately a centimeter or so medial to the insertion, almost like a transverse type of tear. This was unusual, more of a traumatic type of rupture. A shaver was used to debride back the unstable edges. Care was taken to try to preserve as much as the normal tendon as possible b ecause a fair amount of the tendon was still attached to the greater tuberosity. Most of this was ta gianna back using biters and sarah. As much as a tendon that could be preserved was preserved though. The greater tuberosity was then exposed and it was debrided back using rasp as well as 4-0 oval bur r. The cuff was then carefully mobilized. Essentially we will begin by doing a [id number] repair. Now, I tried to reapproximate as much as the tendon as possible and then one 4.75 Healicoil was heide nba through a separate stab incision. After this was done, this was placed with excellent purchase. The patient had really good quality bone. The sutures were then passed through the tendon in a hori zontal matrix configuration beginning anteriorly. The sutures were then tied down beginning anterior ly and then posteriorly. Sutures were then passed through the MultiFix anchor and then placed in a l ateral row fixation. Final images were obtained. The cuff was reapproximated to the footprint. Att ention was then directed to the biceps. The bed was air-planed to the right side. The anterior aspect of the shoulder was prepped again usin g ChloraPrep. A 15 blade was used to make an incision along the biceps tendon. Soft tissues careful ly dissected to expose the pec. The remainder of the incision was done bluntly. The pec was then el evated and the biceps was brought through the wound. The biceps groove was then prepared in the usua l fashion with electrocautery device, the red ball rasp, as well as the osteotome. The 2.8 Q-FIX was then placed unicortically with excellent purchase. The sutures were then passed through the tendon 1 cm proximal to the musculotendinous junction. Excess stump was excised. The biceps was shovelled back to the wound and it was then secured. The wounds were then copiously irrigated with sterile citlalli ine. The anterior wound was closed in layers with 2-0 Vicryl and 3-0 Monocryl. The portals were clos ed with 3-0 nylon. Sterile dressings were applied. Cryo/Cuff and UltraSling were applied. He was a woken from anesthesia and was transferred to the PACU in stable condition. POSTOPERATIVE PLAN: He will be nonweightbearing. He will be discharged on pain medication and antib iotics. DVT prophylaxis was considered, but deferred due to no previous personal or family history. I will see the patient back in 10 to 14 days. [id number]/[facility] #: [id number]
== END 2018-06-13 15:50 | disposition home or self-care (01) ==
LOC: OR 09:51
PROVIDERS: ATTEND Orthopaedic Surgery
DX: S46.011A Strain of muscle(s) and tendon(s) of the rotator cuff of right shoulder, initial encounter (principal); S43.491A Other sprain of right shoulder joint, initial encounter; M75.21 Bicipital tendinitis, right shoulder; X58.XXXA Exposure to other specified factors, initial encounter; Y92.9 Unspecified place or not applicable; G89.18 Other acute postprocedural pain; M19.90 Unspecified osteoarthritis, unspecified site
CPT/HCPCS: C1713; C1776; J0690; J1100; J1170; J1885; J2250; J2405; J2704; J3010; J3490

== ENCOUNTER 2023-06-09 07:24 | Observation (INO) ==
[~2023-06-09 07:24] MED LIST changes: -Buffered Lidocaine 0.9% SYRIN* 5 ML/SYR SYRINGE INTRADERM ONE; +Buffered Lidocaine 1% SYRIN 1 ml INTRADERM ONE; +Lactated Ringers 1000 ml BAG 1,000 ML IV SCH; +ROPIVACAINE 5 MG/ML 30 ML BTL (0.5%) ONE
[2023-06-09] MEDS ORDERED: ceFAZolin 2 GM in NS PREMIX 2 GM/100 ML BAG IVPB ONE (07:40)
[2023-06-09] MEDS ORDERED: Tranexamic Acid 1 GM/100ML BAG 2,000 MG/200 ML BAG IV ONE (07:40)
[2023-06-09 08:04] LABS: Rapid COVID-19 Molecular Undetected (Undetected)
[2023-06-09] MEDS ORDERED: fentaNYL 100 mcg/2 ml 50 MCG/ML VIAL ONE (08:41)
[2023-06-09] MEDS ORDERED: Midazolam 2 mg/2 ml VIAL 1 mg/ml 2 ml VIAL (2 mg) ONE ×2 (08:41→08:47)
[2023-06-09] MEDS ORDERED: Phenylephrine 40 mcg/mL 10mL (400mcg) SYRINGE ONE (08:44)
[2023-06-09] MEDS ORDERED: Lidocaine 2% PF 5 ML VIAL ONE (08:44)
[2023-06-09] MEDS ORDERED: ROPIVACAINE 5 MG/ML 30 ML BTL (0.5%) ONE (08:48)
[2023-06-09] MEDS ORDERED: Naloxone 0.4 mg VIAL 0.4 mg/ml 1 ml VIAL IV PRN (09:06)
[2023-06-09] MEDS ORDERED: Ondansetron 4 mg VIAL 2 MG/ML 2 ml VIAL IV PRN ×2 (09:06→12:31)
[2023-06-09] MEDS ORDERED: HYDROmorphone 1 MG/1 ML SYRINGE IV PRN (09:06)
[2023-06-09] MEDS ORDERED: Acetaminophen IV 1 GM/100ML 1,000 MG/100 ML BAG IV PRN (09:06)
[2023-06-09] MEDS ORDERED: fentaNYL 100 mcg/2 ml 50 MCG/ML VIAL IV PRN (09:06)
[2023-06-09] MEDS ORDERED: Acetaminophen IV 1 GM/100ML 1,000 MG/100 ML BAG IV ONE (10:34)
[2023-06-09] MEDS ORDERED: Ondansetron 4 mg VIAL 2 MG/ML 2 ml VIAL ONE (10:53)
[2023-06-09] MEDS ORDERED: Dexamethasone IV 4 MG/ML VIAL 1 ml VIAL ONE (10:53)
[2023-06-09] MEDS ORDERED: KETAMINE HCL 10 MG/ML 20 ml VIAL (200 MG) ONE (11:02)
[2023-06-09] MEDS ORDERED: Lactulose 30 ml UDC PO PRN (12:31)
[2023-06-09] MEDS ORDERED: Morphine 2 MG/ML SYRINGE IV PRN (12:31)
[2023-06-09] MEDS ORDERED: Magnesium Hydroxide LIQ 30 ML UDC PO PRN (12:31)
[2023-06-09] MEDS ORDERED: Ondansetron ODT 4 mg TAB 4 MG TAB PO PRN (12:31)
[2023-06-09] MEDS: Lactated Ringers 1000 ml BAG 1,000 ML IV SCH (14:05)
[2023-06-09] MEDS ORDERED: Polyethylene Glycol 3350 17 GM PACKET PO PRN (16:13)
[2023-06-09] MEDS: ceFAZolin 1 GM ADVAN 1 GM in NS 0.9% 50 ML 50 ML IVPB SCH (18:39)
[2023-06-09] MEDS: Magnesium Hydroxide LIQ 30 ML UDC PO SCH (20:57)
[2023-06-10] MEDS: Lactated Ringers 1000 ml BAG 1,000 ML IV SCH (00:50)
[2023-06-10] MEDS: ceFAZolin 1 GM ADVAN 1 GM in NS 0.9% 50 ML 50 ML IVPB SCH ×2 (02:29→09:29)
[2023-06-10 07:04] LABS: Hematocrit 27.3 % (38-53); Hemoglobin 9.2 g/dL (13.2-16.3); Mean Platelet Volume 6.7 fL (7.5-11.2); Platelet Count 173 10^3/uL (150-450)
[2023-06-10 07:21] LABS: Creatinine, Serum 0.77 mg/dL (0.67-1.17); eGFR CKD-EPI 92.2 (>60)
[2023-06-10] MEDS: Magnesium Hydroxide LIQ 30 ML UDC PO SCH (08:23)
[2023-06-10] MEDS ORDERED: Influenza vaccine *QUAD* *2023-24* 0.5 ML SYRINGE IM ONE (09:00)
[2023-06-10] MEDS ORDERED: Vitamin THERAPEUTIC TAB PO SCH (09:00)
[2023-06-10 10:36] VITALS: BP 106/52
== END 2023-06-10 13:05 | disposition home or self-care (01) ==
LOC: SDS 07:24 → SSU 07:24 → EDSTATUS 11:45
PROVIDERS: ADMIT Orthopaedic Surgery Adult Reconstructive Orthopaedic Surgery; ATTEND Orthopaedic Surgery Adult Reconstructive Orthopaedic Surgery